=== PATIENT | male | born 1940 | race Caucasian/White ===

== ENCOUNTER 2017-02-25 23:08 | Emergency (ER) | payer OTHER ==
[2017-02-25] MEDS: FUROSEMIDE 40 MG INJ IV (23:31)
[2017-02-25] MEDS: NITROGLYCERIN 2% 1 GM OINT PKT TD (23:31)
[2017-02-25 23:39] LABS: ADD MAN DIFF? NO
[2017-02-25 23:46] LABS: BASOPHIL # 0.1 10^3/ul (0.0-0.1); BASOPHILS % 0.6 % (0.0-2.0); EOSINOPHILS # 0.4 10^3/ul (0.0-0.5); EOSINOPHILS % 4.3 % (0.0-7.0); HEMATOCRIT 41.8 % (42.0-52.0); HEMOGLOBIN 13.9 g/dl (14.0-18.0); LYMPHOCYTES # 3.2 10^3/ul (0.8-2.9); LYMPHOCYTES % 32.1 % (15.0-51.0); MEAN CORPUSCULAR HEMOGLOBIN 32.2 pg (29.0-33.0); MEAN CORPUSCULAR HGB CONC 33.3 g/dl (32.0-37.0); MEAN CORPUSCULAR VOLUME 96.8 fl (82.0-101.0); MEAN PLATELET VOLUME 10.8 fl (7.4-10.4); MONOCYTE # 0.7 10^3/ul (0.3-0.9); MONOCYTES % 6.8 % (0.0-11.0); NEUTROPHIL # 5.6 10^3/ul (1.6-7.5); NEUTROPHILS % 55.9 % (39.0-77.0); PLATELET COUNT 272 10^3/UL (140-415); RED BLOOD COUNT 4.32 10^6/ul (4.70-6.10); RED CELL DISTRIBUTION WIDTH 12.4 % (11.5-14.5)
[2017-02-26 00:06] LABS: INR 0.98; PROTIME 13.1 Sec (11.9-14.9)
[2017-02-26 00:07] LABS: PARTIAL THROMBOPLASTIN TIME 25.7 Sec (25.0-35.0)
[2017-02-26 00:08] LABS: ALANINE AMINOTRANSFERASE 27 IU/L (13-69); ALBUMIN 4.2 g/dl (3.3-4.9); ALKALINE PHOSPHATASE 98 IU/L (42-121); ANION GAP 14 (8-16); ASPARTATE AMINO TRANSFERASE 21 IU/L (15-46); BILIRUBIN,INDIRECT 0.1 mg/dl (0-1.1); BILIRUBIN,TOTAL 0.1 mg/dl (0.2-1.3); BLOOD UREA NITROGEN 17 mg/dl (7-20); CARBON DIOXIDE 25 mmol/L (21-31); CHLORIDE 105 mmol/L (97-110); CREATININE 1.09 mg/dl (0.61-1.24); GLUCOSE 291 mg/dl (70-220); POTASSIUM 3.3 mmol/L (3.5-5.1); SODIUM 141 mmol/L (135-144); TOTAL PROTEIN 7.7 g/dl (6.1-8.1)
[2017-02-26 00:11] LABS: AADO2 Arterial 135.2 mmHg (7.0-24.0); Allen Test ACCEPTAB; Arterial Base Excess -3.6 mmol/L (-3.0-3); Arterial Blood Gas Oxygen Sat 98.9 mmHG (95.0-100.0); Arterial COHb 0.3 % (0.0-3.0); Arterial Fraction of Oxyhgb 98.4 % (93.0-99.0); Arterial HCO3 20.9 mmol/L (22.0-26.0); Arterial MetHb 0.2 % (0.0-1.5); Arterial Total Hemglobin 13.9 g/dl (12.0-18.0); Arterial pCO2 36.3 mmhg (35-45); Blood Gas IEPAP 15/5; MODE MASK - BIPAP; Site Right Radial
[2017-02-26 00:18] LABS: B-TYPE NATRIURETIC PEPTIDE 2870 PG/ML (0-450); TROPONIN-I 0.035 ng/ml (0.00-0.12)
== END 2017-02-26 04:20 | disposition short-term general hospital (02) ==
LOC: E/R 23:08
DX: J81.0 Acute pulmonary edema (principal); I10 Essential (primary) hypertension; E11.9 Type 2 diabetes mellitus without complications; Z79.82 Long term (current) use of aspirin
CPT/HCPCS: 36415; 36600; 71045; 80053; 82803; 83880; 84484; 85025; 85610; 85730; 93005; 94660; 96374; 99291-25

== ENCOUNTER 2017-06-29 10:41 | Emergency (ER) | payer OTHER ==
[2017-06-29 11:54] LABS: ADD MAN DIFF? NO
[2017-06-29 12:00] LABS: BASOPHILS % 0.6 % (0.0-2.0); EOSINOPHILS # 0.4 10^3/ul (0.0-0.5); EOSINOPHILS % 5.2 % (0.0-7.0); HEMATOCRIT 37.1 % (42.0-52.0); HEMOGLOBIN 12.8 g/dl (14.0-18.0); LYMPHOCYTES # 1.6 10^3/ul (0.8-2.9); LYMPHOCYTES % 23.8 % (15.0-51.0); MEAN CORPUSCULAR HEMOGLOBIN 32.7 pg (29.0-33.0); MEAN CORPUSCULAR HGB CONC 34.5 g/dl (32.0-37.0); MEAN CORPUSCULAR VOLUME 94.9 fl (82.0-101.0); MEAN PLATELET VOLUME 10.8 fl (7.4-10.4); MONOCYTE # 0.4 10^3/ul (0.3-0.9); MONOCYTES % 6.6 % (0.0-11.0); NEUTROPHIL # 4.2 10^3/ul (1.6-7.5); NEUTROPHILS % 63.5 % (39.0-77.0); PLATELET COUNT 229 10^3/UL (140-415); RED BLOOD COUNT 3.91 10^6/ul (4.70-6.10); RED CELL DISTRIBUTION WIDTH 12.5 % (11.5-14.5)
[2017-06-29 12:00] LABS: WHITE BLOOD COUNT 6.7 10^3/ul (4.8-10.8)
[2017-06-29 12:21] LABS: ALANINE AMINOTRANSFERASE 20 IU/L (13-69); ALBUMIN 4.1 g/dl (3.3-4.9); ALBUMIN/GLOBULIN RATIO 1.28; ALKALINE PHOSPHATASE 89 IU/L (42-121); ANION GAP 16 (8-16); ASPARTATE AMINO TRANSFERASE 25 IU/L (15-46); BILIRUBIN,INDIRECT 0.5 mg/dl (0-1.1); BILIRUBIN,TOTAL 0.5 mg/dl (0.2-1.3); BLOOD UREA NITROGEN 21 mg/dl (7-20); CALCIUM 8.9 mg/dl (8.4-10.2); CARBON DIOXIDE 28 mmol/L (21-31); CHLORIDE 103 mmol/L (97-110); CREATININE 1.09 mg/dl (0.61-1.24); GLUCOSE 229 mg/dl (70-220); POTASSIUM 3.3 mmol/L (3.5-5.1); SODIUM 144 mmol/L (135-144); TOTAL PROTEIN 7.3 g/dl (6.1-8.1)
[2017-06-29 12:31] LABS: B-TYPE NATRIURETIC PEPTIDE 3570 PG/ML (0-450); TROPONIN-I 0.065 ng/ml (0.000-0.120)
[2017-06-29 12:35] LABS: INR 0.88; PARTIAL THROMBOPLASTIN TIME 30.3 Sec (25.0-35.0); PT RATIO 0.9
[2017-06-29] MEDS: FUROSEMIDE 40 MG INJ IV (13:11)
[2017-06-29] MEDS: POTASSIUM CHLORIDE 20 MEQ POWDER FOR ORAL SOLN PO (14:25)
== END 2017-06-29 14:49 | disposition home or self-care (01) ==
LOC: E/R 10:41
DX: I50.9 Heart failure, unspecified (principal); E11.9 Type 2 diabetes mellitus without complications; I10 Essential (primary) hypertension; Z79.82 Long term (current) use of aspirin
CPT/HCPCS: 36415; 71045; 80053; 83880; 84484; 85025; 85610; 85730; 93005; 96374; 99285-25

== ENCOUNTER 2017-07-06 22:37 | Observation (INO) | payer OTHER ==
[2017-07-07 03:11] LABS: ADD MAN DIFF? NO
[2017-07-07 03:13] LABS: BASOPHIL # 0.1 10^3/ul (0.0-0.1); BASOPHILS % 0.7 % (0.0-2.0); EOSINOPHILS # 0.4 10^3/ul (0.0-0.5); EOSINOPHILS % 4.9 % (0.0-7.0); HEMATOCRIT 38.6 % (42.0-52.0); HEMOGLOBIN 12.9 g/dl (14.0-18.0); LYMPHOCYTES # 2.5 10^3/ul (0.8-2.9); MEAN CORPUSCULAR HEMOGLOBIN 31.9 pg (29.0-33.0); MEAN CORPUSCULAR HGB CONC 33.4 g/dl (32.0-37.0); MEAN CORPUSCULAR VOLUME 95.3 fl (82.0-101.0); MONOCYTE # 0.6 10^3/ul (0.3-0.9); MONOCYTES % 7.4 % (0.0-11.0); NEUTROPHIL # 4.8 10^3/ul (1.6-7.5); NEUTROPHILS % 56.8 % (39.0-77.0); PLATELET COUNT 229 10^3/UL (140-415); RED BLOOD COUNT 4.05 10^6/ul (4.70-6.10); RED CELL DISTRIBUTION WIDTH 12.6 % (11.5-14.5)
[2017-07-07 03:13] LABS: WHITE BLOOD COUNT 8.4 10^3/ul (4.8-10.8)
[2017-07-07 03:36] LABS: ALANINE AMINOTRANSFERASE 22 IU/L (13-69); ALBUMIN 4.2 g/dl (3.3-4.9); ALBUMIN/GLOBULIN RATIO 1.23; ALKALINE PHOSPHATASE 80 IU/L (42-121); ANION GAP 19 (8-16); ASPARTATE AMINO TRANSFERASE 21 IU/L (15-46); BILIRUBIN,INDIRECT 0.4 mg/dl (0-1.1); BILIRUBIN,TOTAL 0.4 mg/dl (0.2-1.3); BLOOD UREA NITROGEN 24 mg/dl (7-20); CARBON DIOXIDE 29 mmol/L (21-31); CHLORIDE 102 mmol/L (97-110); CREATININE 1.19 mg/dl (0.61-1.24); GLUCOSE 92 mg/dl (70-220); POTASSIUM 3.5 mmol/L (3.5-5.1); SODIUM 146 mmol/L (135-144); TOTAL PROTEIN 7.6 g/dl (6.1-8.1)
[2017-07-07 03:46] LABS: B-TYPE NATRIURETIC PEPTIDE 4420 PG/ML (0-450); TROPONIN-I 0.083 ng/ml (0.000-0.120)
[2017-07-07] MEDS: SOD CHLORIDE 0.9% 1,000 ML IV (04:02)
[2017-07-07] MEDS: FUROSEMIDE 40 MG INJ IV ×2 (05:59→18:59)
[2017-07-07 06:00] LABS: ADD UMIC NO; UR ASCORBIC ACID NEGATIVE (NEGATIVE); UR BILIRUBIN (Dip) NEGATIVE (NEGATIVE); UR BLOOD (Dip) NEGATIVE (NEGATIVE); UR CLARITY CLEAR (CLEAR); UR COLOR STRAW (YELLOW); UR GLUCOSE (Dip) NEGATIVE (NEGATIVE); UR KETONES (Dip) NEGATIVE (NEGATIVE); UR LEUKOCYTE ESTERASE (Dip) NEGATIVE Leu/ul (NEGATIVE); UR NITRITE (Dip) NEGATIVE (NEGATIVE); UR SPECIFIC GRAVITY (Dip) 1.006 (1.003-1.030); UR TOTAL PROTEIN (Dip) NEGATIVE (NEGATIVE); UR UROBILINOGEN (Dip) NEGATIVE (NEGATIVE)
[2017-07-07 09:00] LABS: CREATINE KINASE 79 IU/L (23-200)
[2017-07-07 09:10] LABS: CK INDEX 1.8; TROPONIN-I 0.082 ng/ml (0.000-0.120)
[2017-07-07 09:25] LABS: CK-MB 1.43 ng/ml (0.0-2.4)
[2017-07-07] MEDS ORDERED: ACETAMINOPHEN 325 MG TAB PO (10:00)
[2017-07-07] MEDS ORDERED: NITROGLYCERIN (SL) 0.4 MG TAB SL (10:00)
[2017-07-07] MEDS ORDERED: GLUCOSE GEL 15 GRAM TUBE PO ×2 (10:00)
[2017-07-07] MEDS ORDERED: NACL 0.9% 3 ML SYG IV (10:00)
[2017-07-07] MEDS: LISINOPRIL 5 MG TAB PO (10:00)
[2017-07-07] MEDS ORDERED: ONDANSETRON 4 MG INJ IV (10:00)
[2017-07-07] MEDS ORDERED: GLUCAGON 1 MG INJ IM (10:00)
[2017-07-07] MEDS ORDERED: BISACODYL 10 MG SUPP PR (10:00)
[2017-07-07] MEDS ORDERED: DEXTROSE 50% 50 ML SYRINGE IV ×2 (10:00)
[2017-07-07] MEDS ORDERED: HYDROCODONE/APAP (5/325) TAB PO (10:00)
[2017-07-07] MEDS ORDERED: GLUCOSE GEL 15 GRAM TUBE BUCCAL (10:00)
[2017-07-07] MEDS: BISOPROLOL 5 MG TAB PO (11:00)
[2017-07-07] MEDS: POLYETHYLENE GLYCOL 17 GM PACKET PO (12:42)
[2017-07-07] MEDS: DOCUSATE SODIUM 100 MG CAP PO ×2 (12:43→20:47)
[2017-07-07] MEDS: CLOPIDOGREL 75 MG TAB PO (12:43)
[2017-07-07] MEDS: FAMOTIDINE 20 MG TAB PO ×2 (12:43→20:47)
[2017-07-07] MEDS: ASPIRIN (EC) 81 MG TAB PO (12:44)
[2017-07-07] MEDS: INSULIN ASPART [NOVOLOG] 3 ML PEN SC ×3 (12:48→20:52)
[2017-07-07 14:21] LABS: CREATINE KINASE 77 IU/L (23-200)
[2017-07-07 14:32] LABS: CK INDEX 1.8; TROPONIN-I 0.067 ng/ml (0.000-0.120)
[2017-07-07 14:35] LABS: CK-MB 1.37 ng/ml (0.0-2.4)
[2017-07-07] MEDS: HEPARIN 5,000 UNIT/0.5 ML VIAL SC ×2 (17:19→20:57)
[2017-07-07] MEDS: ATORVASTATIN 40 MG TAB PO (20:47)
[2017-07-08] MEDS: ACCU-CHEK XX (02:00)
[2017-07-08] MEDS: FUROSEMIDE 40 MG INJ IV (05:21)
[2017-07-08] MEDS: MAGNESIUM HYDROXIDE 30ML CUP PO (05:21)
[2017-07-08] MEDS: HEPARIN 5,000 UNIT/0.5 ML VIAL SC ×2 (05:26→14:21)
[2017-07-08 06:34] LABS: ADD MAN DIFF? NO
[2017-07-08 06:38] LABS: BASOPHIL # 0.1 10^3/ul (0.0-0.1); BASOPHILS % 0.8 % (0.0-2.0); EOSINOPHILS # 0.3 10^3/ul (0.0-0.5); EOSINOPHILS % 4.4 % (0.0-7.0); HEMATOCRIT 39.6 % (42.0-52.0); HEMOGLOBIN 13.6 g/dl (14.0-18.0); LYMPHOCYTES # 1.8 10^3/ul (0.8-2.9); LYMPHOCYTES % 24.1 % (15.0-51.0); MEAN CORPUSCULAR HEMOGLOBIN 32.5 pg (29.0-33.0); MEAN CORPUSCULAR HGB CONC 34.3 g/dl (32.0-37.0); MEAN CORPUSCULAR VOLUME 94.7 fl (82.0-101.0); MEAN PLATELET VOLUME 11.3 fl (7.4-10.4); MONOCYTE # 0.6 10^3/ul (0.3-0.9); MONOCYTES % 8.5 % (0.0-11.0); NEUTROPHIL # 4.6 10^3/ul (1.6-7.5); NEUTROPHILS % 62.1 % (39.0-77.0); PLATELET COUNT 231 10^3/UL (140-415); RED BLOOD COUNT 4.18 10^6/ul (4.70-6.10); RED CELL DISTRIBUTION WIDTH 12.2 % (11.5-14.5)
[2017-07-08 06:38] LABS: WHITE BLOOD COUNT 7.4 10^3/ul (4.8-10.8)
[2017-07-08 08:06] LABS: ALANINE AMINOTRANSFERASE 21 IU/L (13-69); ALBUMIN 3.8 g/dl (3.3-4.9); ALBUMIN/GLOBULIN RATIO 1.11; ALKALINE PHOSPHATASE 83 IU/L (42-121); ANION GAP 13 (8-16); ASPARTATE AMINO TRANSFERASE 20 IU/L (15-46); BILIRUBIN,INDIRECT 0.9 mg/dl (0-1.1); BILIRUBIN,TOTAL 0.9 mg/dl (0.2-1.3); BLOOD UREA NITROGEN 24 mg/dl (7-20); CALCIUM 9.2 mg/dl (8.4-10.2); CARBON DIOXIDE 30 mmol/L (21-31); CHLORIDE 105 mmol/L (97-110); CHOL/HDL RATIO 3.6 RATIO; CHOLESTEROL 143 mg/dl (100-200); CREATININE 1.18 mg/dl (0.61-1.24); GLUCOSE 186 mg/dl (70-220); HDL CHOLESTEROL 39 mg/dl (31-75); LDL CHOLESTEROL,CALCULATED 79 mg/dl; MAGNESIUM 2.3 mg/dl (1.7-2.5); POTASSIUM 3.9 mmol/L (3.5-5.1); SODIUM 144 mmol/L (135-144); TOTAL PROTEIN 7.2 g/dl (6.1-8.1); TRIGLYCERIDES 123 mg/dl (0-149)
[2017-07-08] MEDS: POLYETHYLENE GLYCOL 17 GM PACKET PO (08:14)
[2017-07-08] MEDS: FAMOTIDINE 20 MG TAB PO (08:15)
[2017-07-08] MEDS: CLOPIDOGREL 75 MG TAB PO (08:15)
[2017-07-08] MEDS: BISOPROLOL 5 MG TAB PO (08:15)
[2017-07-08] MEDS: LISINOPRIL 5 MG TAB PO (08:15)
[2017-07-08] MEDS: DOCUSATE SODIUM 100 MG CAP PO (08:16)
[2017-07-08] MEDS: ASPIRIN (EC) 81 MG TAB PO (08:16)
[2017-07-08] MEDS: INSULIN ASPART [NOVOLOG] 3 ML PEN SC ×3 (08:35→17:06)
[2017-07-08 08:36] LABS: HEMOGLOBIN A1C 9.3 % (0-5.9)
[2017-07-08] MEDS: SOD CHLORIDE 0.9% 250 ML IV ×2 (14:19→16:05)
[2017-07-09] MEDS ORDERED: FUROSEMIDE 40 MG TAB PO (09:00)
== END 2017-07-08 18:30 | disposition home or self-care (01) ==
LOC: E/R 22:37 → TEL 07-07 05:38
DX: I50.9 Heart failure, unspecified (principal); K59.00 Constipation, unspecified; E11.9 Type 2 diabetes mellitus without complications; I73.9 Peripheral vascular disease, unspecified; E78.5 Hyperlipidemia, unspecified; I10 Essential (primary) hypertension
CPT/HCPCS: 36415; 71045; 74019; 80053; 80061; 81003; 82550; 82553; 82962; 83036; 83735; 83880; 84484; 85025; 93005; 93306; 96374; 99217; 99285-25; G0378

== ENCOUNTER 2017-08-09 19:04 | Inpatient (IN) | payer OTHER ==
[2017-08-09] MEDS: ASPIRIN 325 MG TAB PO (23:02)
[2017-08-09 23:11] LABS: ADD MAN DIFF? NO
[2017-08-09] MEDS: IPRATROPIUM (NEB) 0.5 MG/2.5 ML AMP HHN (23:13)
[2017-08-09] MEDS: LEVALBUTEROL (NEB) 1.25 MG/0.5 ML AMP HHN (23:13)
[2017-08-09 23:14] LABS: BASOPHILS % 0.7 % (0.0-2.0); EOSINOPHILS # 0.3 10^3/ul (0.0-0.5); EOSINOPHILS % 4.5 % (0.0-7.0); HEMATOCRIT 37.6 % (42.0-52.0); HEMOGLOBIN 12.5 g/dl (14.0-18.0); LYMPHOCYTES # 1.7 10^3/ul (0.8-2.9); LYMPHOCYTES % 28.9 % (15.0-51.0); MEAN CORPUSCULAR HEMOGLOBIN 31.6 pg (29.0-33.0); MEAN CORPUSCULAR HGB CONC 33.2 g/dl (32.0-37.0); MEAN CORPUSCULAR VOLUME 94.9 fl (82.0-101.0); MEAN PLATELET VOLUME 11.5 fl (7.4-10.4); MONOCYTE # 0.4 10^3/ul (0.3-0.9); MONOCYTES % 7.2 % (0.0-11.0); NEUTROPHIL # 3.5 10^3/ul (1.6-7.5); NEUTROPHILS % 58.5 % (39.0-77.0); PLATELET COUNT 182 10^3/UL (140-415); RED BLOOD COUNT 3.96 10^6/ul (4.70-6.10); RED CELL DISTRIBUTION WIDTH 12.8 % (11.5-14.5)
[2017-08-09 23:43] LABS: ANION GAP 20 (8-16); BLOOD UREA NITROGEN 30 mg/dl (7-20); CALCIUM 9.7 mg/dl (8.4-10.2); CARBON DIOXIDE 27 mmol/L (21-31); CHLORIDE 97 mmol/L (97-110); CREATININE 1.74 mg/dl (0.61-1.24); GLUCOSE 105 mg/dl (70-220); POTASSIUM 3.8 mmol/L (3.5-5.1); SODIUM 140 mmol/L (135-144)
[2017-08-09 23:53] LABS: B-TYPE NATRIURETIC PEPTIDE 19100 PG/ML (0-450); TROPONIN-I 0.073 ng/ml (0.000-0.120)
[2017-08-10] MEDS: FUROSEMIDE 40 MG INJ IV ×2 (00:52→08:43)
[2017-08-10] MEDS: PANTOPRAZOLE (EC) 40 MG TAB PO (05:20)
[2017-08-10 06:17] LABS: ADD MAN DIFF? NO
[2017-08-10 06:33] LABS: WHITE BLOOD COUNT 6.6 10^3/ul (4.8-10.8)
[2017-08-10 06:33] LABS: BASOPHIL # 0.1 10^3/ul (0.0-0.1); BASOPHILS % 0.9 % (0.0-2.0); EOSINOPHILS # 0.3 10^3/ul (0.0-0.5); EOSINOPHILS % 4.6 % (0.0-7.0); HEMATOCRIT 35.2 % (42.0-52.0); HEMOGLOBIN 11.6 g/dl (14.0-18.0); LYMPHOCYTES # 1.6 10^3/ul (0.8-2.9); MEAN CORPUSCULAR HEMOGLOBIN 31.4 pg (29.0-33.0); MEAN CORPUSCULAR VOLUME 95.1 fl (82.0-101.0); MEAN PLATELET VOLUME 11.3 fl (7.4-10.4); MONOCYTE # 0.5 10^3/ul (0.3-0.9); NEUTROPHIL # 4.2 10^3/ul (1.6-7.5); NEUTROPHILS % 63.3 % (39.0-77.0); PLATELET COUNT 173 10^3/UL (140-415); RED CELL DISTRIBUTION WIDTH 13.1 % (11.5-14.5)
[2017-08-10 06:48] LABS: CREATINE KINASE 99 IU/L (23-200)
[2017-08-10 06:53] LABS: ANION GAP 20 (8-16); BLOOD UREA NITROGEN 30 mg/dl (7-20); CALCIUM 9.2 mg/dl (8.4-10.2); CARBON DIOXIDE 28 mmol/L (21-31); CHLORIDE 98 mmol/L (97-110); GLUCOSE 119 mg/dl (70-220); POTASSIUM 3.7 mmol/L (3.5-5.1); SODIUM 142 mmol/L (135-144)
[2017-08-10 07:00] LABS: CK INDEX 2.1; CK-MB 2.08 ng/ml (0.0-2.4); TROPONIN-I 0.063 ng/ml (0.000-0.120)
[2017-08-10 07:00] LABS: B-TYPE NATRIURETIC PEPTIDE 13900 PG/ML (0-450)
[2017-08-10] MEDS: LISINOPRIL 5 MG TAB PO (08:42)
[2017-08-10] MEDS: ASPIRIN (EC) 81 MG TAB PO (08:42)
[2017-08-10] MEDS: CLOPIDOGREL 75 MG TAB PO (08:48)
[2017-08-10 13:36] LABS: CREATINE KINASE 88 IU/L (23-200)
[2017-08-10 13:49] LABS: CK INDEX 1.7; TROPONIN-I 0.046 ng/ml (0.000-0.120)
[2017-08-10 13:51] LABS: CK-MB 1.51 ng/ml (0.0-2.4)
[2017-08-10] MEDS: GABAPENTIN 100 MG CAP PO ×2 (14:01→21:46)
[2017-08-10] MEDS: FUROSEMIDE 20 MG INJ IV (14:07)
[2017-08-10] MEDS: INSULIN ASPART [NOVOLOG] 3 ML PEN SC ×3 (14:10→21:38)
[2017-08-10] MEDS: METOPROLOL 25 MG TAB PO (21:00)
[2017-08-10] MEDS: DOCUSATE SODIUM 100 MG CAP PO (21:45)
[2017-08-10] MEDS: ATORVASTATIN 40 MG TAB PO (21:46)
[2017-08-11] MEDS: POTASSIUM CHLORIDE (SR) 20 MEQ TAB PO (08:47)
[2017-08-11] MEDS: GABAPENTIN 100 MG CAP PO ×2 (08:47→12:40)
[2017-08-11] MEDS: FAMOTIDINE 20 MG TAB PO (08:48)
[2017-08-11] MEDS: CLOPIDOGREL 75 MG TAB PO (08:48)
[2017-08-11] MEDS: ASPIRIN (EC) 81 MG TAB PO (08:48)
[2017-08-11] MEDS: METOPROLOL 25 MG TAB PO (08:50)
[2017-08-11] MEDS: INSULIN ASPART [NOVOLOG] 3 ML PEN SC ×2 (08:59→12:57)
[2017-08-11 10:04] LABS: ANION GAP 17 (8-16); BLOOD UREA NITROGEN 23 mg/dl (7-20); CALCIUM 9.3 mg/dl (8.4-10.2); CARBON DIOXIDE 28 mmol/L (21-31); CHLORIDE 99 mmol/L (97-110); CREATININE 1.17 mg/dl (0.61-1.24); GLUCOSE 259 mg/dl (70-220); POTASSIUM 3.8 mmol/L (3.5-5.1); SODIUM 140 mmol/L (135-144)
[2017-08-11] MEDS: FUROSEMIDE 20 MG INJ IV (11:57)
[2017-08-11] MEDS: HEPARIN 5,000 UNIT/0.5 ML VIAL SC (14:15)
== END 2017-08-11 14:33 | disposition home health service (06) | DRG 292 ==
LOC: TEL 08-10 19:46 → E/R 19:04 → TEL 08-10 02:00
DX: I11.0 Hypertensive heart disease with heart failure (principal); N17.9 Acute kidney failure, unspecified; I50.23 Acute on chronic systolic (congestive) heart failure; Z89.511 Acquired absence of right leg below knee; E11.8 Type 2 diabetes mellitus with unspecified complications; H53.8 Other visual disturbances; Z89.422 Acquired absence of other left toe(s); I25.10 Atherosclerotic heart disease of native coronary artery without angina pectoris; E11.9 Type 2 diabetes mellitus without complications
CPT/HCPCS: 36415; 71045; 80048; 82550; 82553; 82962; 83880; 84484; 85025; 93005; 94664; 96372; 96374; 96376; 99285-25

== ENCOUNTER 2017-08-15 12:49 | Emergency (ER) | payer OTHER ==
[2017-08-15 16:38] LABS: ADD MAN DIFF? NO
[2017-08-15 16:41] LABS: BASOPHIL # 0.1 10^3/ul (0.0-0.1); BASOPHILS % 0.8 % (0.0-2.0); EOSINOPHILS # 0.1 10^3/ul (0.0-0.5); EOSINOPHILS % 2.2 % (0.0-7.0); HEMATOCRIT 37.4 % (42.0-52.0); HEMOGLOBIN 12.5 g/dl (14.0-18.0); LYMPHOCYTES # 1.7 10^3/ul (0.8-2.9); LYMPHOCYTES % 27.5 % (15.0-51.0); MEAN CORPUSCULAR HEMOGLOBIN 31.1 pg (29.0-33.0); MEAN CORPUSCULAR HGB CONC 33.4 g/dl (32.0-37.0); MONOCYTE # 0.5 10^3/ul (0.3-0.9); NEUTROPHIL # 3.6 10^3/ul (1.6-7.5); NEUTROPHILS % 60.2 % (39.0-77.0); PLATELET COUNT 182 10^3/UL (140-415); RED BLOOD COUNT 4.02 10^6/ul (4.70-6.10); RED CELL DISTRIBUTION WIDTH 13.3 % (11.5-14.5)
[2017-08-15] MEDS: ONDANSETRON 4 MG INJ IV (16:45)
[2017-08-15] MEDS: morphine 4 MG/ML VIAL IV (16:45)
[2017-08-15 16:57] LABS: ALANINE AMINOTRANSFERASE 326 IU/L (13-69); ALBUMIN 3.9 g/dl (3.3-4.9); ALBUMIN/GLOBULIN RATIO 1.18; ALKALINE PHOSPHATASE 94 IU/L (42-121); ANION GAP 17 (8-16); ASPARTATE AMINO TRANSFERASE 412 IU/L (15-46); BILIRUBIN,INDIRECT 1.2 mg/dl (0-1.1); BILIRUBIN,TOTAL 1.2 mg/dl (0.2-1.3); BLOOD UREA NITROGEN 47 mg/dl (7-20); CALCIUM 8.9 mg/dl (8.4-10.2); CARBON DIOXIDE 25 mmol/L (21-31); CHLORIDE 104 mmol/L (97-110); CREATININE 2.08 mg/dl (0.61-1.24); GLUCOSE 87 mg/dl (70-220); POTASSIUM 3.5 mmol/L (3.5-5.1); SODIUM 142 mmol/L (135-144); TOTAL PROTEIN 7.2 g/dl (6.1-8.1)
[2017-08-15 16:59] LABS: INR 1.34; PROTIME 16.8 Sec (11.9-14.9); PT RATIO 1.3
[2017-08-15 17:00] LABS: PARTIAL THROMBOPLASTIN TIME 29.4 Sec (25.0-35.0)
[2017-08-15 17:09] LABS: TROPONIN-I 0.029 ng/ml (0.000-0.120)
[2017-08-15 18:01] LABS: B-TYPE NATRIURETIC PEPTIDE 20700 PG/ML (0-450)
[2017-08-15] MEDS: IPRATROPIUM (NEB) 0.5 MG/2.5 ML AMP NEB (18:18)
[2017-08-15] MEDS: ALBUTEROL 0.083% (NEB) 2.5 MG/3 ML AMP NEB (18:18)
[2017-08-15] MEDS: FUROSEMIDE 40 MG INJ IV (18:25)
[2017-08-15] MEDS ORDERED: ONDANSETRON 4 MG INJ IV ×2 (18:30→19:30)
[2017-08-15] MEDS ORDERED: ACETAMINOPHEN 325 MG TAB PO ×2 (18:30→19:30)
[2017-08-15 18:48] LABS: CREATINE KINASE 90 IU/L (23-200)
[2017-08-15 19:09] LABS: ADD UMIC NO; UR ASCORBIC ACID NEGATIVE (NEGATIVE); UR BILIRUBIN (Dip) NEGATIVE (NEGATIVE); UR BLOOD (Dip) NEGATIVE (NEGATIVE); UR CLARITY CLEAR (CLEAR); UR COLOR STRAW (YELLOW); UR GLUCOSE (Dip) NEGATIVE (NEGATIVE); UR KETONES (Dip) NEGATIVE (NEGATIVE); UR LEUKOCYTE ESTERASE (Dip) NEGATIVE Leu/ul (NEGATIVE); UR NITRITE (Dip) NEGATIVE (NEGATIVE); UR SPECIFIC GRAVITY (Dip) 1.005 (1.003-1.030); UR TOTAL PROTEIN (Dip) NEGATIVE (NEGATIVE); UR UROBILINOGEN (Dip) NEGATIVE (NEGATIVE)
[2017-08-15] MEDS ORDERED: BISACODYL 10 MG SUPP PR (19:30)
[2017-08-15] MEDS ORDERED: MAGNESIUM HYDROXIDE 30ML CUP PO (19:30)
[2017-08-15] MEDS ORDERED: NITROGLYCERIN (SL) 0.4 MG TAB SL (19:30)
[2017-08-15] MEDS ORDERED: NACL 0.9% 3 ML SYG IV (19:30)
[2017-08-15] MEDS ORDERED: DOCUSATE SODIUM 100 MG CAP PO (21:00)
[2017-08-15] MEDS ORDERED: GABAPENTIN 100 MG CAP PO (21:00)
[2017-08-15] MEDS ORDERED: ATORVASTATIN 40 MG TAB PO (21:00)
[2017-08-15] MEDS ORDERED: METOPROLOL 25 MG TAB PO (21:00)
[2017-08-16] MEDS ORDERED: ASPIRIN 81 MG TAB PO (09:00)
[2017-08-16] MEDS ORDERED: CHOLECALCIFEROL 1,000 UNIT TAB PO (09:00)
[2017-08-16] MEDS ORDERED: CLOPIDOGREL 75 MG TAB PO (09:00)
[2017-08-16] MEDS ORDERED: FAMOTIDINE 20 MG TAB PO (09:00)
== END 2017-08-15 21:56 | disposition short-term general hospital (02) ==
LOC: E/R 12:49
DX: M54.5 Low back pain (principal); I50.9 Heart failure, unspecified; N17.9 Acute kidney failure, unspecified; I10 Essential (primary) hypertension; I25.10 Atherosclerotic heart disease of native coronary artery without angina pectoris; E11.9 Type 2 diabetes mellitus without complications; R06.02 Shortness of breath; Z79.01 Long term (current) use of anticoagulants; Z79.82 Long term (current) use of aspirin; Z79.4 Long term (current) use of insulin
CPT/HCPCS: 71045; 72100; 76775; 80053; 81003; 82550; 83880; 84484; 85025; 85610; 85730; 93005; 94664; 96374; 96375; 99285-25

== ENCOUNTER 2017-08-21 05:23 | Emergency (ER) | payer OTHER ==
[2017-08-21 05:55] LABS: ADD MAN DIFF? NO
[2017-08-21 05:57] LABS: BASOPHILS % 0.6 % (0.0-2.0); EOSINOPHILS # 0.3 10^3/ul (0.0-0.5); EOSINOPHILS % 3.7 % (0.0-7.0); HEMATOCRIT 34.5 % (42.0-52.0); HEMOGLOBIN 11.6 g/dl (14.0-18.0); LYMPHOCYTES # 1.4 10^3/ul (0.8-2.9); MEAN CORPUSCULAR HEMOGLOBIN 30.9 pg (29.0-33.0); MEAN CORPUSCULAR HGB CONC 33.6 g/dl (32.0-37.0); MEAN PLATELET VOLUME 10.7 fl (7.4-10.4); MONOCYTE # 0.5 10^3/ul (0.3-0.9); MONOCYTES % 7.6 % (0.0-11.0); NEUTROPHIL # 4.5 10^3/ul (1.6-7.5); NEUTROPHILS % 66.8 % (39.0-77.0); PLATELET COUNT 195 10^3/UL (140-415); RED BLOOD COUNT 3.75 10^6/ul (4.70-6.10); RED CELL DISTRIBUTION WIDTH 13.6 % (11.5-14.5)
[2017-08-21 05:57] LABS: WHITE BLOOD COUNT 6.7 10^3/ul (4.8-10.8)
[2017-08-21 06:33] LABS: ANION GAP 12 (8-16); BLOOD UREA NITROGEN 28 mg/dl (7-20); CALCIUM 8.6 mg/dl (8.4-10.2); CARBON DIOXIDE 25 mmol/L (21-31); CHLORIDE 105 mmol/L (97-110); CREATININE 1.29 mg/dl (0.61-1.24); GLUCOSE 175 mg/dl (70-220); POTASSIUM 3.1 mmol/L (3.5-5.1); SODIUM 139 mmol/L (135-144)
[2017-08-21 06:44] LABS: TROPONIN-I 0.052 ng/ml (0.000-0.120)
[2017-08-21 07:06] LABS: B-TYPE NATRIURETIC PEPTIDE 16100 PG/ML (0-450)
[2017-08-21] MEDS: ALBUTEROL 0.083% (NEB) 2.5 MG/3 ML AMP NEB (07:56)
[2017-08-21] MEDS: IPRATROPIUM (NEB) 0.5 MG/2.5 ML AMP NEB (07:56)
== END 2017-08-21 08:49 | disposition left against medical advice (07) ==
LOC: E/R 05:23
DX: I50.9 Heart failure, unspecified (principal); I10 Essential (primary) hypertension; I25.10 Atherosclerotic heart disease of native coronary artery without angina pectoris; E11.9 Type 2 diabetes mellitus without complications; Z79.01 Long term (current) use of anticoagulants; Z79.82 Long term (current) use of aspirin; Z79.84 Long term (current) use of oral hypoglycemic drugs
CPT/HCPCS: 36415; 71045; 80048; 83880; 84484; 85025; 93005; 94664; 99285-25

== ENCOUNTER 2017-08-25 10:45 | Emergency (ER) | payer OTHER ==
[2017-08-25] MEDS: FUROSEMIDE 40 MG INJ IV (11:21)
[2017-08-25 11:51] LABS: ADD MAN DIFF? NO
[2017-08-25 11:53] LABS: WHITE BLOOD COUNT 6.5 10^3/ul (4.8-10.8)
[2017-08-25 11:53] LABS: BASOPHIL # 0.1 10^3/ul (0.0-0.1); BASOPHILS % 0.8 % (0.0-2.0); EOSINOPHILS # 0.1 10^3/ul (0.0-0.5); EOSINOPHILS % 1.1 % (0.0-7.0); HEMATOCRIT 35.2 % (42.0-52.0); HEMOGLOBIN 11.8 g/dl (14.0-18.0); LYMPHOCYTES # 1.2 10^3/ul (0.8-2.9); LYMPHOCYTES % 18.2 % (15.0-51.0); MEAN CORPUSCULAR HEMOGLOBIN 30.9 pg (29.0-33.0); MEAN CORPUSCULAR HGB CONC 33.5 g/dl (32.0-37.0); MEAN CORPUSCULAR VOLUME 92.1 fl (82.0-101.0); MONOCYTE # 0.5 10^3/ul (0.3-0.9); NEUTROPHIL # 4.7 10^3/ul (1.6-7.5); NEUTROPHILS % 72.6 % (39.0-77.0); PLATELET COUNT 224 10^3/UL (140-415); RED BLOOD COUNT 3.82 10^6/ul (4.70-6.10)
[2017-08-25 12:18] LABS: ANION GAP 16 (8-16); BLOOD UREA NITROGEN 29 mg/dl (7-20); CALCIUM 8.8 mg/dl (8.4-10.2); CARBON DIOXIDE 25 mmol/L (21-31); CHLORIDE 102 mmol/L (97-110); CREATININE 1.53 mg/dl (0.61-1.24); GLUCOSE 125 mg/dl (70-220); POTASSIUM 3.2 mmol/L (3.5-5.1); SODIUM 140 mmol/L (135-144)
[2017-08-25 12:30] LABS: B-TYPE NATRIURETIC PEPTIDE 22100 PG/ML (0-450); TROPONIN-I 0.049 ng/ml (0.000-0.120)
== END 2017-08-25 14:06 | disposition home or self-care (01) ==
LOC: E/R 10:45
DX: I50.9 Heart failure, unspecified (principal); I10 Essential (primary) hypertension; I25.10 Atherosclerotic heart disease of native coronary artery without angina pectoris; Z76.0 Encounter for issue of repeat prescription; Z79.01 Long term (current) use of anticoagulants; Z99.2 Dependence on renal dialysis; Z79.82 Long term (current) use of aspirin
CPT/HCPCS: 36415; 71045; 80048; 83880; 84484; 85025; 93005; 99285-25

== ENCOUNTER 2017-08-26 17:31 | Emergency (ER) | payer OTHER ==
[2017-08-26 18:55] LABS: ADD MAN DIFF? NO
[2017-08-26 18:57] LABS: BASOPHIL # 0.1 10^3/ul (0.0-0.1); BASOPHILS % 1.1 % (0.0-2.0); EOSINOPHILS # 0.1 10^3/ul (0.0-0.5); EOSINOPHILS % 1.3 % (0.0-7.0); HEMATOCRIT 35.3 % (42.0-52.0); HEMOGLOBIN 11.8 g/dl (14.0-18.0); LYMPHOCYTES # 1.3 10^3/ul (0.8-2.9); LYMPHOCYTES % 24.9 % (15.0-51.0); MEAN CORPUSCULAR HEMOGLOBIN 30.4 pg (29.0-33.0); MEAN CORPUSCULAR HGB CONC 33.4 g/dl (32.0-37.0); MEAN PLATELET VOLUME 10.7 fl (7.4-10.4); MONOCYTE # 0.5 10^3/ul (0.3-0.9); MONOCYTES % 8.6 % (0.0-11.0); NEUTROPHIL # 3.4 10^3/ul (1.6-7.5); NEUTROPHILS % 63.9 % (39.0-77.0); PLATELET COUNT 212 10^3/UL (140-415); RED BLOOD COUNT 3.88 10^6/ul (4.70-6.10); RED CELL DISTRIBUTION WIDTH 13.7 % (11.5-14.5)
[2017-08-26 18:57] LABS: WHITE BLOOD COUNT 5.3 10^3/ul (4.8-10.8)
[2017-08-26] MEDS: ASPIRIN 81 MG TAB PO (19:08)
[2017-08-26 19:16] LABS: ANION GAP 17 (8-16); BLOOD UREA NITROGEN 37 mg/dl (7-20); CALCIUM 8.8 mg/dl (8.4-10.2); CARBON DIOXIDE 24 mmol/L (21-31); CHLORIDE 99 mmol/L (97-110); GLUCOSE 175 mg/dl (70-220); POTASSIUM 3.4 mmol/L (3.5-5.1); SODIUM 137 mmol/L (135-144)
[2017-08-26 19:27] LABS: TROPONIN-I 0.039 ng/ml (0.000-0.120)
== END 2017-08-26 20:45 | disposition home or self-care (01) ==
LOC: E/R 17:31
DX: R00.2 Palpitations (principal); E11.9 Type 2 diabetes mellitus without complications; I50.9 Heart failure, unspecified; I10 Essential (primary) hypertension; I25.10 Atherosclerotic heart disease of native coronary artery without angina pectoris; Z79.82 Long term (current) use of aspirin; Z79.84 Long term (current) use of oral hypoglycemic drugs
CPT/HCPCS: 36415; 71045; 80048; 84484; 85025; 93005; 99285-25

== ENCOUNTER 2017-08-31 00:38 | Emergency (ER) | payer OTHER ==
[2017-08-31 01:19] LABS: ADD MAN DIFF? NO
[2017-08-31 01:20] LABS: BASOPHILS % 0.5 % (0.0-2.0); EOSINOPHILS # 0.1 10^3/ul (0.0-0.5); EOSINOPHILS % 2.3 % (0.0-7.0); HEMATOCRIT 37.7 % (42.0-52.0); HEMOGLOBIN 12.3 g/dl (14.0-18.0); LYMPHOCYTES # 1.1 10^3/ul (0.8-2.9); LYMPHOCYTES % 18.6 % (15.0-51.0); MEAN CORPUSCULAR HEMOGLOBIN 30.1 pg (29.0-33.0); MEAN CORPUSCULAR HGB CONC 32.6 g/dl (32.0-37.0); MEAN CORPUSCULAR VOLUME 92.4 fl (82.0-101.0); MEAN PLATELET VOLUME 11.1 fl (7.4-10.4); MONOCYTE # 0.5 10^3/ul (0.3-0.9); MONOCYTES % 8.2 % (0.0-11.0); PLATELET COUNT 194 10^3/UL (140-415); RED BLOOD COUNT 4.08 10^6/ul (4.70-6.10); RED CELL DISTRIBUTION WIDTH 14.4 % (11.5-14.5)
[2017-08-31 01:20] LABS: WHITE BLOOD COUNT 5.7 10^3/ul (4.8-10.8)
[2017-08-31 01:22] LABS: URINE PH (Dip) POC 5.5 (5.0-8.5)
[2017-08-31 01:22] LABS: URINE BLOOD (Dip) POC Negative (NEGATIVE); URINE KETONES (Dip) POC Negative (NEGATIVE); URINE LEUKOCYTE EST (Dip) POC Negative (NEGATIVE); URINE NITRITE (Dip) POC Negative (NEGATIVE); URINE TOTAL PROTEIN POC 1+ (NEGATIVE)
[2017-08-31 01:37] LABS: ALANINE AMINOTRANSFERASE 33 IU/L (13-69); ALBUMIN 4.1 g/dl (3.3-4.9); ALBUMIN/GLOBULIN RATIO 1.32; ALKALINE PHOSPHATASE 99 IU/L (42-121); ANION GAP 16 (8-16); ASPARTATE AMINO TRANSFERASE 28 IU/L (15-46); BILIRUBIN,INDIRECT 0.8 mg/dl (0-1.1); BILIRUBIN,TOTAL 0.8 mg/dl (0.2-1.3); BLOOD UREA NITROGEN 30 mg/dl (7-20); CALCIUM 8.9 mg/dl (8.4-10.2); CARBON DIOXIDE 26 mmol/L (21-31); CHLORIDE 102 mmol/L (97-110); CREATININE 1.36 mg/dl (0.61-1.24); GLUCOSE 163 mg/dl (70-220); LIPASE 350 U/L (23-300); POTASSIUM 3.5 mmol/L (3.5-5.1); SODIUM 140 mmol/L (135-144); TOTAL PROTEIN 7.2 g/dl (6.1-8.1)
== END 2017-08-31 04:42 | disposition home or self-care (01) ==
LOC: E/R 00:38
DX: K59.00 Constipation, unspecified (principal); K80.20 Calculus of gallbladder without cholecystitis without obstruction; N28.9 Disorder of kidney and ureter, unspecified; J90 Pleural effusion, not elsewhere classified; D64.9 Anemia, unspecified; I50.9 Heart failure, unspecified; I25.10 Atherosclerotic heart disease of native coronary artery without angina pectoris; E11.9 Type 2 diabetes mellitus without complications; I10 Essential (primary) hypertension; Z79.82 Long term (current) use of aspirin; Z79.84 Long term (current) use of oral hypoglycemic drugs; Z79.01 Long term (current) use of anticoagulants
CPT/HCPCS: 36415; 74176; 80053; 81003; 82962; 83690; 85025; 93005; 99285-25

== ENCOUNTER 2017-09-01 23:15 | Emergency (ER) | payer OTHER ==
[2017-09-02 03:32] LABS: ADD MAN DIFF? NO
[2017-09-02 03:37] LABS: WHITE BLOOD COUNT 6.1 10^3/ul (4.8-10.8)
[2017-09-02 03:37] LABS: BASOPHILS % 0.7 % (0.0-2.0); EOSINOPHILS # 0.3 10^3/ul (0.0-0.5); EOSINOPHILS % 5.4 % (0.0-7.0); HEMATOCRIT 36.1 % (42.0-52.0); HEMOGLOBIN 11.4 g/dl (14.0-18.0); LYMPHOCYTES # 1.5 10^3/ul (0.8-2.9); LYMPHOCYTES % 24.5 % (15.0-51.0); MEAN CORPUSCULAR HEMOGLOBIN 29.5 pg (29.0-33.0); MEAN CORPUSCULAR HGB CONC 31.6 g/dl (32.0-37.0); MEAN CORPUSCULAR VOLUME 93.3 fl (82.0-101.0); MEAN PLATELET VOLUME 10.9 fl (7.4-10.4); MONOCYTE # 0.5 10^3/ul (0.3-0.9); MONOCYTES % 8.8 % (0.0-11.0); NEUTROPHIL # 3.7 10^3/ul (1.6-7.5); NEUTROPHILS % 60.4 % (39.0-77.0); PLATELET COUNT 183 10^3/UL (140-415); RED BLOOD COUNT 3.87 10^6/ul (4.70-6.10); RED CELL DISTRIBUTION WIDTH 14.7 % (11.5-14.5)
[2017-09-02] MEDS: SOD CHLORIDE 0.9% 1,000 ML IV (03:38)
[2017-09-02] MEDS: ASPIRIN 325 MG TAB PO (03:38)
[2017-09-02 03:56] LABS: ALANINE AMINOTRANSFERASE 28 IU/L (13-69); ALBUMIN 3.8 g/dl (3.3-4.9); ALBUMIN/GLOBULIN RATIO 1.15; ALKALINE PHOSPHATASE 75 IU/L (42-121); ANION GAP 13 (8-16); ASPARTATE AMINO TRANSFERASE 23 IU/L (15-46); BILIRUBIN,INDIRECT 0.8 mg/dl (0-1.1); BILIRUBIN,TOTAL 0.8 mg/dl (0.2-1.3); BLOOD UREA NITROGEN 24 mg/dl (7-20); CALCIUM 9.1 mg/dl (8.4-10.2); CARBON DIOXIDE 28 mmol/L (21-31); CHLORIDE 103 mmol/L (97-110); GLUCOSE 65 mg/dl (70-220); SODIUM 140 mmol/L (135-144); TOTAL PROTEIN 7.1 g/dl (6.1-8.1)
[2017-09-02 04:08] LABS: B-TYPE NATRIURETIC PEPTIDE 19400 PG/ML (0-450); TROPONIN-I 0.041 ng/ml (0.000-0.120)
[2017-09-02] MEDS: BUMETANIDE 1 MG INJ IV (07:36)
[2017-09-02] MEDS ORDERED: morphine 2 MG INJ IV (09:30)
[2017-09-02] MEDS ORDERED: MAGNESIUM HYDROXIDE 30ML CUP PO (09:30)
[2017-09-02] MEDS ORDERED: traMADol 50 MG TAB PO (09:30)
[2017-09-02] MEDS ORDERED: NITROGLYCERIN (SL) 0.4 MG TAB SL (09:30)
[2017-09-02] MEDS ORDERED: ACETAMINOPHEN 325 MG TAB PO (09:30)
[2017-09-02] MEDS ORDERED: BISACODYL 10 MG SUPP PR (09:30)
[2017-09-02] MEDS ORDERED: DOCUSATE SODIUM 100 MG CAP PO ×2 (09:30→21:00)
[2017-09-02] MEDS ORDERED: NACL 0.9% 3 ML SYG IV (09:30)
[2017-09-02] MEDS ORDERED: ONDANSETRON 4 MG INJ IV (09:30)
[2017-09-02] MEDS ORDERED: GLUCAGON 1 MG INJ IM (10:00)
[2017-09-02] MEDS ORDERED: GLUCOSE GEL 15 GRAM TUBE PO ×2 (10:00)
[2017-09-02] MEDS ORDERED: DEXTROSE 50% 50 ML SYRINGE IV ×2 (10:00)
[2017-09-02] MEDS ORDERED: GLUCOSE GEL 15 GRAM TUBE BUCCAL (10:00)
[2017-09-02] MEDS ORDERED: INSULIN ASPART [NOVOLOG] 3 ML PEN SC (12:00)
[2017-09-02] MEDS ORDERED: GABAPENTIN 100 MG CAP PO (13:00)
[2017-09-02] MEDS ORDERED: HEPARIN 5,000 UNIT/0.5 ML VIAL SC (14:00)
[2017-09-02] MEDS ORDERED: BUMETANIDE 1 MG INJ IV (18:00)
[2017-09-02] MEDS ORDERED: ATORVASTATIN 40 MG TAB PO (21:00)
[2017-09-02] MEDS ORDERED: FAMOTIDINE 20 MG TAB PO (21:00)
[2017-09-03] MEDS ORDERED: ACCU-CHEK XX (02:00)
[2017-09-03] MEDS ORDERED: CHOLECALCIFEROL 2,000 UNIT CAP PO (09:00)
[2017-09-03] MEDS ORDERED: POLYETHYLENE GLYCOL 17 GM PACKET PO (09:00)
[2017-09-03] MEDS ORDERED: ASPIRIN 81 MG TAB PO (09:00)
[2017-09-03] MEDS ORDERED: BISOPROLOL 5 MG TAB PO (09:00)
[2017-09-03] MEDS ORDERED: CLOPIDOGREL 75 MG TAB PO (09:00)
== END 2017-09-02 12:54 | disposition left against medical advice (07) ==
LOC: E/R 09-02 12:54
DX: I50.9 Heart failure, unspecified (principal); N28.9 Disorder of kidney and ureter, unspecified; I25.10 Atherosclerotic heart disease of native coronary artery without angina pectoris; E11.9 Type 2 diabetes mellitus without complications; Z79.01 Long term (current) use of anticoagulants; Z79.84 Long term (current) use of oral hypoglycemic drugs
CPT/HCPCS: 36415; 71045; 80053; 83880; 84484; 85025; 93005; 96374; 99285-25

== ENCOUNTER 2017-09-04 15:39 | Emergency (ER) | payer OTHER ==
[2017-09-04] MEDS: LACTATED RINGER'S 1,000 ML IV (16:19)
[2017-09-04 16:22] LABS: ADD MAN DIFF? NO
[2017-09-04 16:23] LABS: WHITE BLOOD COUNT 5.7 10^3/ul (4.8-10.8)
[2017-09-04 16:23] LABS: BASOPHIL # 0.1 10^3/ul (0.0-0.1); BASOPHILS % 0.9 % (0.0-2.0); EOSINOPHILS # 0.1 10^3/ul (0.0-0.5); EOSINOPHILS % 1.4 % (0.0-7.0); HEMATOCRIT 35.5 % (42.0-52.0); HEMOGLOBIN 11.8 g/dl (14.0-18.0); LYMPHOCYTES # 1.5 10^3/ul (0.8-2.9); LYMPHOCYTES % 26.2 % (15.0-51.0); MEAN CORPUSCULAR HEMOGLOBIN 30.3 pg (29.0-33.0); MEAN CORPUSCULAR HGB CONC 33.2 g/dl (32.0-37.0); MEAN CORPUSCULAR VOLUME 91.3 fl (82.0-101.0); MEAN PLATELET VOLUME 10.6 fl (7.4-10.4); MONOCYTE # 0.5 10^3/ul (0.3-0.9); MONOCYTES % 8.9 % (0.0-11.0); NEUTROPHIL # 3.6 10^3/ul (1.6-7.5); NEUTROPHILS % 62.4 % (39.0-77.0); PLATELET COUNT 200 10^3/UL (140-415); RED BLOOD COUNT 3.89 10^6/ul (4.70-6.10); RED CELL DISTRIBUTION WIDTH 14.7 % (11.5-14.5)
[2017-09-04 16:42] LABS: ALANINE AMINOTRANSFERASE 32 IU/L (13-69); ALBUMIN 3.6 g/dl (3.3-4.9); ALBUMIN/GLOBULIN RATIO 1.16; ALKALINE PHOSPHATASE 84 IU/L (42-121); ANION GAP 17 (8-16); ASPARTATE AMINO TRANSFERASE 31 IU/L (15-46); BILIRUBIN,INDIRECT 1.2 mg/dl (0-1.1); BILIRUBIN,TOTAL 1.2 mg/dl (0.2-1.3); BLOOD UREA NITROGEN 31 mg/dl (7-20); CALCIUM 8.9 mg/dl (8.4-10.2); CARBON DIOXIDE 22 mmol/L (21-31); CHLORIDE 101 mmol/L (97-110); CREATININE 1.45 mg/dl (0.61-1.24); GLUCOSE 214 mg/dl (70-220); LIPASE 176 U/L (23-300); POTASSIUM 3.7 mmol/L (3.5-5.1); SODIUM 136 mmol/L (135-144); TOTAL PROTEIN 6.7 g/dl (6.1-8.1)
[2017-09-04 16:52] LABS: TROPONIN-I 0.021 ng/ml (0.000-0.120)
== END 2017-09-04 18:08 | disposition home or self-care (01) ==
LOC: E/R 15:39
DX: E86.0 Dehydration (principal); R51 Headache; I50.9 Heart failure, unspecified; I25.10 Atherosclerotic heart disease of native coronary artery without angina pectoris; E11.9 Type 2 diabetes mellitus without complications; Z79.84 Long term (current) use of oral hypoglycemic drugs
CPT/HCPCS: 36415; 80053; 82962; 83690; 84484; 85025; 93005; 99284-25

== ENCOUNTER 2017-09-05 22:14 | Emergency (ER) | payer OTHER ==
[2017-09-06 02:06] LABS: ADD MAN DIFF? NO
[2017-09-06 02:07] LABS: WHITE BLOOD COUNT 5.7 10^3/ul (4.8-10.8)
[2017-09-06 02:07] LABS: BASOPHIL # 0.1 10^3/ul (0.0-0.1); BASOPHILS % 0.9 % (0.0-2.0); EOSINOPHILS # 0.2 10^3/ul (0.0-0.5); EOSINOPHILS % 4.2 % (0.0-7.0); HEMATOCRIT 37.3 % (42.0-52.0); HEMOGLOBIN 12.1 g/dl (14.0-18.0); LYMPHOCYTES # 1.7 10^3/ul (0.8-2.9); LYMPHOCYTES % 29.9 % (15.0-51.0); MEAN CORPUSCULAR HEMOGLOBIN 29.5 pg (29.0-33.0); MEAN CORPUSCULAR HGB CONC 32.4 g/dl (32.0-37.0); MONOCYTE # 0.5 10^3/ul (0.3-0.9); MONOCYTES % 9.3 % (0.0-11.0); NEUTROPHIL # 3.2 10^3/ul (1.6-7.5); NEUTROPHILS % 55.5 % (39.0-77.0); PLATELET COUNT 220 10^3/UL (140-415); RED CELL DISTRIBUTION WIDTH 14.9 % (11.5-14.5)
[2017-09-06 02:40] LABS: ANION GAP 11 (8-16); BLOOD UREA NITROGEN 25 mg/dl (7-20); CALCIUM 8.7 mg/dl (8.4-10.2); CARBON DIOXIDE 25 mmol/L (21-31); CHLORIDE 106 mmol/L (97-110); CREATININE 1.22 mg/dl (0.61-1.24); GLUCOSE 89 mg/dl (70-220); POTASSIUM 3.1 mmol/L (3.5-5.1); SODIUM 139 mmol/L (135-144)
[2017-09-06 02:52] LABS: B-TYPE NATRIURETIC PEPTIDE 17500 PG/ML (0-450)
[2017-09-06] MEDS: BUMETANIDE 0.5 MG TAB PO (02:56)
[2017-09-06] MEDS: FUROSEMIDE 40 MG INJ IV (04:53)
[2017-09-06] MEDS: POTASSIUM CHLORIDE (SR) 20 MEQ TAB PO (05:26)
== END 2017-09-06 05:34 | disposition home or self-care (01) ==
LOC: E/R 22:14
DX: I50.9 Heart failure, unspecified (principal); E11.9 Type 2 diabetes mellitus without complications; I25.10 Atherosclerotic heart disease of native coronary artery without angina pectoris; Z79.01 Long term (current) use of anticoagulants; Z79.84 Long term (current) use of oral hypoglycemic drugs
CPT/HCPCS: 36415; 71045; 80048; 82962; 83880; 84484; 85025; 93005; 96374; 99285-25

== ENCOUNTER 2017-09-13 04:35 | Inpatient (IN) | payer OTHER ==
[2017-09-13 05:15] LABS: ADD MAN DIFF? NO
[2017-09-13 05:18] LABS: WHITE BLOOD COUNT 6.3 10^3/ul (4.8-10.8)
[2017-09-13 05:18] LABS: BASOPHIL # 0.1 10^3/ul (0.0-0.1); BASOPHILS % 0.8 % (0.0-2.0); EOSINOPHILS # 0.1 10^3/ul (0.0-0.5); EOSINOPHILS % 2.2 % (0.0-7.0); HEMOGLOBIN 11.5 g/dl (14.0-18.0); LYMPHOCYTES # 1.6 10^3/ul (0.8-2.9); MEAN CORPUSCULAR HEMOGLOBIN 29.2 pg (29.0-33.0); MEAN CORPUSCULAR HGB CONC 31.9 g/dl (32.0-37.0); MEAN CORPUSCULAR VOLUME 91.4 fl (82.0-101.0); MEAN PLATELET VOLUME 10.7 fl (7.4-10.4); MONOCYTE # 0.5 10^3/ul (0.3-0.9); MONOCYTES % 7.3 % (0.0-11.0); NEUTROPHIL # 4.1 10^3/ul (1.6-7.5); NEUTROPHILS % 64.5 % (39.0-77.0); PLATELET COUNT 204 10^3/UL (140-415); RED BLOOD COUNT 3.94 10^6/ul (4.70-6.10); RED CELL DISTRIBUTION WIDTH 15.5 % (11.5-14.5)
[2017-09-13] MEDS: ASPIRIN 325 MG TAB PO (05:22)
[2017-09-13 05:35] LABS: ANION GAP 14 (8-16); BLOOD UREA NITROGEN 32 mg/dl (7-20); CARBON DIOXIDE 23 mmol/L (21-31); CHLORIDE 105 mmol/L (97-110); CREATININE 1.69 mg/dl (0.61-1.24); SODIUM 139 mmol/L (135-144)
[2017-09-13 05:48] LABS: B-TYPE NATRIURETIC PEPTIDE 24100 PG/ML (0-450); TROPONIN-I 0.023 ng/ml (0.000-0.120)
[2017-09-13 05:49] LABS: GLUCOSE 50 mg/dl (70-220); POTASSIUM 2.9 mmol/L (3.5-5.1)
[2017-09-13] MEDS: POTASSIUM CHLORIDE (SR) 20 MEQ TAB PO (06:07)
[2017-09-13] MEDS: ALBUTEROL 0.5% (NEB) 2.5 MG/0.5 ML AMP INH (06:19)
[2017-09-13] MEDS: IPRATROPIUM (NEB) 0.5 MG/2.5 ML AMP INH (06:20)
[2017-09-13] MEDS: DEXTROSE 50% 50 ML SYRINGE IV (06:25)
[2017-09-13] MEDS ORDERED: ONDANSETRON 4 MG INJ IV ×2 (09:00→14:30)
[2017-09-13] MEDS ORDERED: ACETAMINOPHEN 325 MG TAB PO ×2 (09:00→14:30)
[2017-09-13] MEDS ORDERED: traMADol 50 MG TAB PO (14:00)
[2017-09-13] MEDS ORDERED: DEXTROSE 50% 50 ML SYRINGE IV ×2 (14:30)
[2017-09-13] MEDS ORDERED: GLUCAGON 1 MG INJ IM (14:30)
[2017-09-13] MEDS ORDERED: NACL 0.9% 3 ML SYG IV (14:30)
[2017-09-13] MEDS ORDERED: NITROGLYCERIN (SL) 0.4 MG TAB SL (14:30)
[2017-09-13] MEDS ORDERED: GLUCOSE GEL 15 GRAM TUBE BUCCAL (14:30)
[2017-09-13] MEDS ORDERED: GLUCOSE GEL 15 GRAM TUBE PO ×2 (14:30)
[2017-09-13] MEDS ORDERED: morphine 2 MG INJ IV (14:30)
[2017-09-13] MEDS: BUMETANIDE 1 MG INJ IV (14:52)
[2017-09-13 15:10] LABS: CREATINE KINASE 40 IU/L (23-200)
[2017-09-13 15:21] LABS: CK INDEX 3.2; CK-MB 1.28 ng/ml (0.0-2.4); TROPONIN-I 0.016 ng/ml (0.000-0.120)
[2017-09-13] MEDS: CHOLECALCIFEROL 2,000 UNIT CAP PO (16:04)
[2017-09-13 17:48] LABS: ANION GAP 10 (8-16); BLOOD UREA NITROGEN 28 mg/dl (7-20); CALCIUM 8.8 mg/dl (8.4-10.2); CARBON DIOXIDE 25 mmol/L (21-31); CHLORIDE 105 mmol/L (97-110); CREATININE 1.34 mg/dl (0.61-1.24); GLUCOSE 211 mg/dl (70-220); MAGNESIUM 1.7 mg/dl (1.7-2.5); POTASSIUM 4.2 mmol/L (3.5-5.1); SODIUM 136 mmol/L (135-144)
[2017-09-13] MEDS: INSULIN ASPART [NOVOLOG] 3 ML PEN SC ×3 (17:55→21:00)
[2017-09-13] MEDS: FAMOTIDINE 20 MG TAB PO ×2 (21:00→21:05)
[2017-09-13] MEDS: DOCUSATE SODIUM 100 MG CAP PO (21:05)
[2017-09-13] MEDS: ATORVASTATIN 40 MG TAB PO (21:05)
[2017-09-13] MEDS: GABAPENTIN 100 MG CAP PO (21:06)
[2017-09-13] MEDS: HEPARIN 5,000 UNIT/0.5 ML VIAL SC (21:22)
[2017-09-13] MEDS ORDERED: morphine LIQ (10 MG/5 ML) CUP PO (22:30)
[2017-09-14] MEDS: ACCU-CHEK XX (02:00)
[2017-09-14] MEDS: HEPARIN 5,000 UNIT/0.5 ML VIAL SC ×2 (06:03→14:10)
[2017-09-14] MEDS: INSULIN ASPART [NOVOLOG] 3 ML PEN SC ×2 (07:55→12:32)
[2017-09-14 08:13] LABS: ADD MAN DIFF? NO
[2017-09-14 08:15] LABS: BASOPHILS % 0.6 % (0.0-2.0); EOSINOPHILS # 0.3 10^3/ul (0.0-0.5); EOSINOPHILS % 4.9 % (0.0-7.0); HEMATOCRIT 38.5 % (42.0-52.0); HEMOGLOBIN 12.4 g/dl (14.0-18.0); LYMPHOCYTES # 1.5 10^3/ul (0.8-2.9); LYMPHOCYTES % 22.7 % (15.0-51.0); MEAN CORPUSCULAR HEMOGLOBIN 29.4 pg (29.0-33.0); MEAN CORPUSCULAR HGB CONC 32.2 g/dl (32.0-37.0); MEAN CORPUSCULAR VOLUME 91.2 fl (82.0-101.0); MEAN PLATELET VOLUME 11.2 fl (7.4-10.4); MONOCYTE # 0.5 10^3/ul (0.3-0.9); MONOCYTES % 7.8 % (0.0-11.0); NEUTROPHIL # 4.1 10^3/ul (1.6-7.5); NEUTROPHILS % 63.5 % (39.0-77.0); PLATELET COUNT 218 10^3/UL (140-415); RED BLOOD COUNT 4.22 10^6/ul (4.70-6.10); RED CELL DISTRIBUTION WIDTH 15.8 % (11.5-14.5)
[2017-09-14 08:15] LABS: WHITE BLOOD COUNT 6.5 10^3/ul (4.8-10.8)
[2017-09-14] MEDS: ASPIRIN 81 MG TAB PO (08:34)
[2017-09-14] MEDS: CHOLECALCIFEROL 2,000 UNIT CAP PO (08:34)
[2017-09-14] MEDS: SPIRONOLACTONE 25 MG TAB PO (08:34)
[2017-09-14] MEDS: CLOPIDOGREL 75 MG TAB PO (08:34)
[2017-09-14] MEDS: GABAPENTIN 100 MG CAP PO ×2 (08:34→12:30)
[2017-09-14] MEDS: POLYETHYLENE GLYCOL 17 GM PACKET PO (08:34)
[2017-09-14 08:35] LABS: HEMOGLOBIN A1C 9.6 % (0-5.9)
[2017-09-14] MEDS: FAMOTIDINE 20 MG TAB PO (08:35)
[2017-09-14] MEDS: BUMETANIDE 1 MG INJ IV (08:35)
[2017-09-14 08:40] LABS: ALANINE AMINOTRANSFERASE 32 IU/L (13-69); ALKALINE PHOSPHATASE 67 IU/L (42-121); ANION GAP 10 (8-16); ASPARTATE AMINO TRANSFERASE 30 IU/L (15-46); BILIRUBIN,INDIRECT 1.3 mg/dl (0-1.1); BILIRUBIN,TOTAL 1.3 mg/dl (0.2-1.3); BLOOD UREA NITROGEN 26 mg/dl (7-20); CALCIUM 8.7 mg/dl (8.4-10.2); CARBON DIOXIDE 26 mmol/L (21-31); CHLORIDE 106 mmol/L (97-110); CHOL/HDL RATIO 4.5 RATIO; CHOLESTEROL 113 mg/dl (100-200); CREATININE 1.22 mg/dl (0.61-1.24); GLUCOSE 82 mg/dl (70-220); HDL CHOLESTEROL 25 mg/dl (31-75); LDL CHOLESTEROL,CALCULATED 76 mg/dl; MAGNESIUM 1.7 mg/dl (1.7-2.5); POTASSIUM 3.4 mmol/L (3.5-5.1); SODIUM 139 mmol/L (135-144); TRIGLYCERIDES 60 mg/dl (0-149)
[2017-09-14] MEDS: POTASSIUM CHLORIDE (SR) 20 MEQ TAB PO (10:53)
[2017-09-15] MEDS ORDERED: BUMETANIDE 1 MG TAB PO (09:00)
== END 2017-09-14 17:36 | disposition home health service (06) | DRG 291 ==
LOC: E/R 04:35 → TEL 08:35
DX: I13.0 Hypertensive heart and chronic kidney disease with heart failure and stage 1 through stage 4 chronic kidney disease, or unspecified chronic kidney disease (principal); I50.23 Acute on chronic systolic (congestive) heart failure; I25.5 Ischemic cardiomyopathy; E11.22 Type 2 diabetes mellitus with diabetic chronic kidney disease; N18.3 Chronic kidney disease, stage 3 (moderate); I25.10 Atherosclerotic heart disease of native coronary artery without angina pectoris; E11.649 Type 2 diabetes mellitus with hypoglycemia without coma; Z89.511 Acquired absence of right leg below knee; E78.5 Hyperlipidemia, unspecified
CPT/HCPCS: 36415; 71045; 71250; 80048; 80053; 80061; 82550; 82553; 82962; 83036; 83735; 83880; 84484; 85025; 93005; 94644; 96374; 99291-25

== ENCOUNTER 2017-09-23 15:15 | Emergency (ER) | payer OTHER ==
[2017-09-23] MEDS: SOD CHLORIDE 0.9% 1,000 ML IV (15:28)
[2017-09-23 15:32] LABS: ADD MAN DIFF? NO
[2017-09-23 15:36] LABS: WHITE BLOOD COUNT 8.6 10^3/ul (4.8-10.8)
[2017-09-23 15:36] LABS: BASOPHILS % 0.4 % (0.0-2.0); EOSINOPHILS % 0.5 % (0.0-7.0); HEMOGLOBIN 12.1 g/dl (14.0-18.0); IMMATURE GRANS #M 0.03 10^3/ul; IMMATURE GRANS % (M) 0.4 %; LYMPHOCYTES # 1.1 10^3/ul (0.8-2.9); LYMPHOCYTES % 12.3 % (15.0-51.0); MEAN CORPUSCULAR HEMOGLOBIN 28.7 pg (29.0-33.0); MEAN CORPUSCULAR HGB CONC 32.7 g/dl (32.0-37.0); MEAN CORPUSCULAR VOLUME 87.7 fl (82.0-101.0); MONOCYTE # 0.6 10^3/ul (0.3-0.9); MONOCYTES % 6.5 % (0.0-11.0); NEUTROPHIL # 6.8 10^3/ul (1.6-7.5); NEUTROPHILS % 79.9 % (39.0-77.0); PLATELET COUNT 221 10^3/UL (140-415); RED BLOOD COUNT 4.22 10^6/ul (4.70-6.10)
[2017-09-23 15:49] LABS: HEMOGLOBIN A1C 10.4 % (0-5.9)
[2017-09-23 15:51] LABS: INR 1.18; PROTIME 15.2 Sec (11.9-14.9); PT RATIO 1.2
[2017-09-23 15:52] LABS: PARTIAL THROMBOPLASTIN TIME 29.1 Sec (25.0-35.0)
[2017-09-23 16:04] LABS: ANION GAP 16 (8-16); BLOOD UREA NITROGEN 33 mg/dl (7-20); CALCIUM 8.8 mg/dl (8.4-10.2); CARBON DIOXIDE 22 mmol/L (21-31); CHLORIDE 100 mmol/L (97-110); CHOL/HDL RATIO 4.5 RATIO; CHOLESTEROL 109 mg/dl (100-200); CREATININE 1.17 mg/dl (0.61-1.24); HDL CHOLESTEROL 24 mg/dl (31-75); LDL CHOLESTEROL,CALCULATED 60 mg/dl; POTASSIUM 4.5 mmol/L (3.5-5.1); SODIUM 133 mmol/L (135-144); TRIGLYCERIDES 126 mg/dl (0-149)
[2017-09-23 16:07] LABS: ADD UMIC YES; UR ASCORBIC ACID NEGATIVE (NEGATIVE); UR BILIRUBIN (Dip) NEGATIVE (NEGATIVE); UR BLOOD (Dip) NEGATIVE (NEGATIVE); UR CLARITY CLEAR (CLEAR); UR COLOR YELLOW (YELLOW); UR GLUCOSE (Dip) 3+ mg/dL (NEGATIVE); UR KETONES (Dip) TRACE mg/dL (NEGATIVE); UR LEUKOCYTE ESTERASE (Dip) NEGATIVE Leu/ul (NEGATIVE); UR NITRITE (Dip) NEGATIVE (NEGATIVE); UR RBC 0 /HPF (0-5); UR SPECIFIC GRAVITY (Dip) 1.021 (1.003-1.030); UR TOTAL PROTEIN (Dip) 1+ mg/dl (NEGATIVE); UR UROBILINOGEN (Dip) NEGATIVE (NEGATIVE); UR WBC 2 /HPF (0-5)
[2017-09-23 16:13] LABS: GLUCOSE 427 mg/dl (70-220)
[2017-09-23 16:15] LABS: TROPONIN-I 0.074 ng/ml (0.000-0.120)
[2017-09-23 16:19] LABS: AMPHETAMINE/METHAMPHETAMINE Negative (NEGATIVE); BARBITURATES Negative (NEGATIVE); BENZODIAZEPINES Negative (NEGATIVE); CANNABINOIDS Negative (NEGATIVE); COCAINE Negative (NEGATIVE); OPIATES Negative (NEGATIVE)
[2017-09-23] MEDS: INSULIN LISPRO 100 UNIT/ML VIAL SC (17:31)
== END 2017-09-23 18:30 | disposition home or self-care (01) ==
LOC: E/R 15:15
DX: H53.8 Other visual disturbances (principal); D64.9 Anemia, unspecified; E11.65 Type 2 diabetes mellitus with hyperglycemia; I10 Essential (primary) hypertension; R51 Headache; Z79.01 Long term (current) use of anticoagulants; Z79.4 Long term (current) use of insulin
CPT/HCPCS: 36415; 70450; 71045; 80048; 80061; 80307; 81001; 82962; 83036; 84484; 85025; 85610; 85730; 93005; 96372; 99285-25

== ENCOUNTER 2017-10-01 19:48 | Emergency (ER) | payer OTHER ==
[2017-10-01 21:23] LABS: ADD MAN DIFF? NO
[2017-10-01] MEDS: ONDANSETRON 4 MG INJ IV (21:23)
[2017-10-01] MEDS: morphine 4 MG/ML VIAL IV (21:23)
[2017-10-01 21:25] LABS: WHITE BLOOD COUNT 9.2 10^3/ul (4.8-10.8)
[2017-10-01 21:25] LABS: BASOPHILS % 0.2 % (0.0-2.0); EOSINOPHILS % 0.4 % (0.0-7.0); HEMATOCRIT 33.8 % (42.0-52.0); HEMOGLOBIN 11.3 g/dl (14.0-18.0); LYMPHOCYTES # 1.2 10^3/ul (0.8-2.9); LYMPHOCYTES % 12.8 % (15.0-51.0); MEAN CORPUSCULAR HEMOGLOBIN 28.3 pg (29.0-33.0); MEAN CORPUSCULAR HGB CONC 33.4 g/dl (32.0-37.0); MEAN CORPUSCULAR VOLUME 84.7 fl (82.0-101.0); MEAN PLATELET VOLUME 10.8 fl (7.4-10.4); MONOCYTE # 0.6 10^3/ul (0.3-0.9); MONOCYTES % 6.6 % (0.0-11.0); NEUTROPHIL # 7.3 10^3/ul (1.6-7.5); NEUTROPHILS % 79.7 % (39.0-77.0); PLATELET COUNT 257 10^3/UL (140-415); RED BLOOD COUNT 3.99 10^6/ul (4.70-6.10); RED CELL DISTRIBUTION WIDTH 16.7 % (11.5-14.5)
[2017-10-01 21:41] LABS: ANION GAP 14 (8-16); BLOOD UREA NITROGEN 33 mg/dl (7-20); CALCIUM 8.6 mg/dl (8.4-10.2); CARBON DIOXIDE 26 mmol/L (21-31); CHLORIDE 97 mmol/L (97-110); CREATININE 1.18 mg/dl (0.61-1.24); GLUCOSE 256 mg/dl (70-220); POTASSIUM 3.5 mmol/L (3.5-5.1); SODIUM 133 mmol/L (135-144)
[2017-10-01] MEDS: CEFTRIAXONE 1 GM/50 ML (PMX) 50 ML IVPB (22:34)
[2017-10-01] MEDS: AZITHROMYCIN 500MG/NS (PMX) 250 ML IV (23:11)
[2017-10-01] MEDS: SOD CHLORIDE 0.9% 500 ML IV (23:11)
== END 2017-10-02 03:21 | disposition home or self-care (01) ==
LOC: E/R 10-02 03:21
DX: J18.1 Lobar pneumonia, unspecified organism (principal); I10 Essential (primary) hypertension; E11.9 Type 2 diabetes mellitus without complications; Z79.01 Long term (current) use of anticoagulants; Z79.84 Long term (current) use of oral hypoglycemic drugs
CPT/HCPCS: 36415; 70450; 71045; 80048; 85025; 87040; 96374; 96375; 99285-25